=== PATIENT | female | born 1945 | race Caucasian/White ===

== ENCOUNTER 2016-11-18 09:24 | Emergency (ER) | payer OTHER ==
[~2016-11-18] VITALS: Ht 160 cm; Wt 77.3 kg
[~2016-11-18 09:24] MED LIST: AMLODIPINE BESY10 MG PO; ARICEPT10 MG PO; CRESTOR40 MG PO; GLUCOVANCE 51 TABLET PO; GLYBURID-METFO1 EAC3 PO; LISINOPRIL40 MG PO; LOTREL 5-40 MG1 EACH PO; METOPROL; TOPROL XL100 MG PO
[2016-11-18 10:50] LABS: HEMATOCRIT 40.8 % (36.0-46.0); MCH 29.7 PG (29.0-34.0); MCHC 33.6 G/DL (30.0-36.0); MCV 88.3 FL (83-99); MEAN PLAT.VOLUME 11.8 uM^3 (9.5-12.4); PLATELET COUNT 160 K/uL (156-360); RBC DIS.WIDTH-SD 38.5 % (39-53); RED BLOOD COUNT 4.62 M/uL (3.80-5.20); WHITE BLOOD COUNT 8.8 K/uL (4.1-10.2)
[2016-11-18 11:00] LABS: D-DIMER ELISA 0.95 mg/L FEU (< 0.57)
[2016-11-18 11:03] LABS: CHLORIDE 99 mEq/L (99-109); POTASSIUM 4.6 mEq/L (3.7-5.4); SODIUM 137 mEq/L (136-147)
[2016-11-18 11:05] LABS: GLUCOSE 185 mg/dL (70-99)
[2016-11-18 11:06] LABS: ANION GAP 16 MEQ/L (2-14)
[2016-11-18 11:09] LABS: ALKALINE PHOSPHATASE 57 IU/L (3-129); GFR ESTIMATE (CALCULATED) 43 mL/min/
[2016-11-18 11:10] LABS: UREA NITROGEN (BUN) 20 mg/dL (9-23)
[2016-11-18 11:17] LABS: TROP-I INTERPRETATION NEGATIVE; TROPONIN-I < 0.01 ng/mL (0.0-0.30)
[2016-11-18] MEDS ORDERED: LEVAQUIN500 MG PO (13:19)
[2016-11-18 14:10] VITALS: BP 157/77
== END 2016-11-18 14:11 | disposition home or self-care (01) ==
LOC: EME 09:24
PROVIDERS: Physician Assistant
DX: J20.9 Acute bronchitis, unspecified (principal); J11.1 Influenza due to unidentified influenza virus with other respiratory manifestations; E11.9 Type 2 diabetes mellitus without complications; E78.5 Hyperlipidemia, unspecified; I10 Essential (primary) hypertension
CPT/HCPCS: 71020; 71275; 80053; 84484; 85027; 85379; 93005; 99281; 99284; J7030

== ENCOUNTER 2016-11-20 10:19 | Inpatient (IN) | payer OTHER ==
[~2016-11-20] VITALS: Ht 160 cm; Wt 77.5 kg
[~2016-11-20 10:19] MED LIST changes: +LEVAQUIN500 MG PO
[2016-11-20 10:59] LABS: POINT-OF-CARE METER ID UU13113778
[2016-11-20 12:49] LABS: HEMATOCRIT 36.7 % (36.0-46.0); MCHC 33.8 G/DL (30.0-36.0); MCV 88.9 FL (83-99); MEAN PLAT.VOLUME 11.4 uM^3 (9.5-12.4); PLATELET COUNT 142 K/uL (156-360); RBC DIS.WIDTH-CV 12.4 % (11.8-14.6); RBC DIS.WIDTH-SD 39.9 % (39-53); RED BLOOD COUNT 4.13 M/uL (3.80-5.20)
[2016-11-20 12:50] LABS: WHITE BLOOD COUNT 5.1 K/uL (4.1-10.2)
[2016-11-20 12:54] LABS: CHLORIDE 106 mEq/L (99-109); POTASSIUM 3.9 mEq/L (3.7-5.4); SODIUM 139 mEq/L (136-147)
[2016-11-20 12:56] LABS: GLUCOSE 127 mg/dL (70-99)
[2016-11-20 12:58] LABS: ANION GAP 14 MEQ/L (2-14)
[2016-11-20 13:00] LABS: ALKALINE PHOSPHATASE 50 IU/L (3-129); GFR ESTIMATE (CALCULATED) 31 mL/min/; TOTAL BILIRUBIN 0.7 mg/dL (0.0-1.0)
[2016-11-20 13:02] LABS: UREA NITROGEN (BUN) 37 mg/dL (9-23)
[2016-11-20 13:05] LABS: TROP-I INTERPRETATION NEGATIVE; TROPONIN-I 0.01 ng/mL (0.0-0.30)
[2016-11-20] MEDS ORDERED: LEVOFLOXACIN500 MG PO (14:27)
[2016-11-20] MEDS ORDERED: MOBIC15 MG PO (14:28)
[2016-11-20 16:58] LABS: INFLUENZA A VIRAL ANTIGEN POSITIVE
[2016-11-20 17:00] LABS: INFLUENZA B VIRAL ANTIGEN NEGATIVE
[2016-11-20 17:37] LABS: CREATINE KINASE 91 IU/L (1-294)
[2016-11-20 19:07] LABS: ADD MIUA? YES; BILIRUBIN NEGATIVE; BLOOD NEGATIVE; COLOR YELLOW ((YELLOW)); GLUCOSE (STRIP) NEGATIVE; KETONES 20; LEUKOCYTES NEGATIVE; NITRITE NEGATIVE; PROTEIN (STRIP) NEGATIVE; SPECIFIC GRAVITY 1.014 (1.000-1.030); UROBILINOGEN 0.2 MG/DL (0.2-1.0)
[2016-11-20 19:20] VITALS: BP 170/69
[2016-11-20 19:36] LABS: BACTERIA 1+ /HPF; CASTS PRESENT /LPF; CRYSTALS NONE SEEN; EPITHELIAL CELLS 3+ /HPF; HYALINE CASTS 0-5 /LPF; MUCUS NONE SEEN /LPF; RED BLOOD CELLS 0-5 /HPF (0-5); UCUL ADDED? NO
[2016-11-20 21:35] LABS: POINT-OF-CARE METER ID UU14162508
[2016-11-21 00:26] VITALS: BP 158/64
[2016-11-21 03:04] VITALS: BP 155/67
[2016-11-21 06:46] LABS: POINT-OF-CARE METER ID UU14162508
[2016-11-21 08:06] VITALS: BP 143/61
[2016-11-21 09:37] LABS: HEMATOCRIT 34.1 % (36.0-46.0); MCH 29.9 PG (29.0-34.0); MCHC 33.4 G/DL (30.0-36.0); MCV 89.5 FL (83-99); PLATELET COUNT 141 K/uL (156-360); RBC DIS.WIDTH-CV 12.4 % (11.8-14.6); RBC DIS.WIDTH-SD 41.1 % (39-53); RED BLOOD COUNT 3.81 M/uL (3.80-5.20)
[2016-11-21 09:41] LABS: WHITE BLOOD COUNT 2.9 K/uL (4.1-10.2)
[2016-11-21 10:01] LABS: ANION GAP 9 MEQ/L (2-14); CHLORIDE 111 MEQ/L (99-109); GFR ESTIMATE (CALCULATED) > 59 mL/min/; GLUCOSE 98 mg/dL (70-99); POTASSIUM 3.8 MEQ/L (3.7-5.4); SAMPLE HEMOLYSIS CHECK 0; SAMPLE ICTERIC CHECK 0; SAMPLE LIPEMIA CHECK 0; SODIUM 142 MEQ/L (136-147)
[2016-11-21 10:04] LABS: UREA NITROGEN (BUN) 17 mg/dL (9-23)
[2016-11-21 12:10] LABS: POINT-OF-CARE METER ID UU14162508
[2016-11-21 20:31] VITALS: BP 162/68
[2016-11-21 21:44] LABS: POINT-OF-CARE METER ID UU14162508
[2016-11-21 23:58] VITALS: BP 139/69
[2016-11-22 04:56] VITALS: BP 152/77
[2016-11-22 06:45] LABS: POINT-OF-CARE METER ID UU14162508
[2016-11-22 08:00] VITALS: BP 157/80
[2016-11-22 08:02] LABS: HEMATOCRIT 31.6 % (36.0-46.0); MCH 29.9 PG (29.0-34.0); MCHC 34.2 G/DL (30.0-36.0); MCV 87.5 FL (83-99); MEAN PLAT.VOLUME 11.1 uM^3 (9.5-12.4); PLATELET COUNT 132 K/uL (156-360); RBC DIS.WIDTH-CV 12.2 % (11.8-14.6); RBC DIS.WIDTH-SD 39.8 % (39-53); RED BLOOD COUNT 3.61 M/uL (3.80-5.20); WHITE BLOOD COUNT 3.5 K/uL (4.1-10.2)
[2016-11-22 08:28] LABS: ANION GAP 8 MEQ/L (2-14); CHLORIDE 108 MEQ/L (99-109); POTASSIUM 3.3 MEQ/L (3.7-5.4); SAMPLE HEMOLYSIS CHECK 0; SAMPLE ICTERIC CHECK 0; SAMPLE LIPEMIA CHECK 0; SODIUM 142 MEQ/L (136-147)
[2016-11-22 08:33] LABS: GFR ESTIMATE (CALCULATED) > 59 mL/min/; GLUCOSE 127 mg/dL (70-99); UREA NITROGEN (BUN) 7 mg/dL (9-23)
[2016-11-22] MEDS ORDERED: OSELTAMIVIR PHO30 MG PO (09:57)
[2016-11-22 12:04] LABS: POINT-OF-CARE METER ID UU14162508
== END 2016-11-22 12:59 | disposition home or self-care (01) | DRG 684 ==
LOC: EME 10:19 → 2EAST 15:56 → EDOF 15:56 → 2EAST 15:56
PROVIDERS: Emergency Medicine; Hospitalist; Internal Medicine; Nurse Practitioner Adult Health
DX: N17.9 Acute kidney failure, unspecified (principal); E11.9 Type 2 diabetes mellitus without complications; F03.90 Unspecified dementia, unspecified severity, without behavioral disturbance, psychotic disturbance, mood disturbance, and anxiety; E86.0 Dehydration; I10 Essential (primary) hypertension; E78.5 Hyperlipidemia, unspecified; J11.1 Influenza due to unidentified influenza virus with other respiratory manifestations; J20.9 Acute bronchitis, unspecified
CPT/HCPCS: 71020; 80048; 80053; 81003; 82550; 82948; 83605; 84443; 84484; 85027; 87040; 87502; 93005; 99281; 99284; J0360; J1644; J1815; J2405; J7030